=== PATIENT | female | born 1955 | race Caucasian/White ===

== ENCOUNTER 2022-04-28 06:04 | Inpatient (IN) ==
--- NOTE | 2022-04-09 15:03 | PAT Medication Instructions ---
Medication Instructions Date of Service April 09, 2022 Home Medications ascorbic acid (vitamin C) 500 mg tablet (Vitamin C) 500 mg PO QAM [id number]-ameebghxflxjq-omhcxsyz 250 mg-250 mg-65 mg tablet (Excedrin Migraine) 1 tab PO Q6H PRN atorvastatin 40 mg tablet 40 mg PO QAM calcium carbonate 600 mg calcium (1,500 mg) tablet (Calcium) 600 mg PO QAM cyanocobalamin (vitamin B-12) 100 mcg tablet (Vitamin B-12) 100 mcg PO QAM famotidine 20 mg tablet 20 mg PO QAM multivitamin 1 tab PO QAM psyllium husk 0.52 gram capsule (Daily Fiber) 0.52 g PO QAM ASK your surgeon for instructions qpcxerq-xewtreuikmmgw-rykpdxoc 250 mg-250 mg-65 mg tablet (Excedrin Migraine) 1 tab PO Q6H PRN DO NOT take the morning of surgery ascorbic acid (vitamin C) 500 mg tablet (Vitamin C) 500 mg PO QAM calcium carbonate 600 mg calcium (1,500 mg) tablet (Calcium) 600 mg PO QAM cyanocobalamin (vitamin B-12) 100 mcg tablet (Vitamin B-12) 100 mcg PO QAM multivitamin 1 tab PO QAM psyllium husk 0.52 gram capsule (Daily Fiber) 0.52 g PO QAM Take morning of surgery With a small sip of water, OTHERWISE NOTHING TO EAT OR DRINK AFTER MIDNIGHT: atorvastatin 40 mg tablet 40 mg PO QAM famotidine 20 mg tablet 20 mg PO QAM Other Notes If you have any questions please call us at [phone] or [phone] or [phone] or [phone]
--- NOTE | 2022-04-14 10:03 | Anesthesiology Consultation ---
Date of Service April 14, 2022 Assessment & Plan (1) Encounter for pre-operative examination: Chart Review Chart Review: Acceptable Risk for Surgery (pending surgeon ordered PCP clearance) and Patient seen in Pre Admission Testing - Awaiting PCP clearance (scheduled the week of April 21) Per PAT appt on 04/14/22, patient denies any recent travel or large group activities. Pt is vaccinated for Covid. Will leave to surgeon's discretion if preop Covid testing needed. Educated on importance of using Covid precautions one week prior to surgery History Surgery Operation Date: 04/28/22 07:45 Proposed Procedures p L3-L5 Decompression and Fusion, Spinal Cord Monitoring - Ruy Draper, Height/Weight Height: 5 ft 3 in Weight: 69 kg Allergies Allergy/AdvReac Type Severity Reaction Status Date / Time ampicillin Allergy Intermediate hives or Verified 04/09/22 11:23 flu like symptoms sulfamethoxazole Allergy Intermediate hives or Verified 04/09/22 11:23 [From Septra] flu like symptoms trimethoprim [From Septra] Allergy Intermediate hives or Verified 04/09/22 11:23 flu like symptoms acetaminophen Allergy Unknown Verified 04/14/22 09:55 [From Lorcet (hydrocodone)] hydrocodone Allergy Unknown Verified 04/14/22 09:55 Medications Home Medications Medication Instructions Recorded Confirmed Last Taken ascorbic acid (vitamin C) 500 mg 500 mg PO QAM 04/09/22 04/09/22 Unknown tablet (Vitamin C) ncosgou-xslftvichkfjt-fqjfuezf 250 1 tab PO Q6H PRN Migraine Headache 04/09/22 04/09/22 Unknown mg-250 mg-65 mg tablet (Excedrin Migraine) atorvastatin 40 mg tablet 40 mg PO QAM 04/09/22 04/09/22 Unknown calcium carbonate 600 mg calcium 600 mg PO QAM 04/09/22 04/09/22 Unknown (1,500 mg) tablet (Calcium) cyanocobalamin (vitamin B-12) 100 100 mcg PO QAM 04/09/22 04/09/22 Unknown mcg tablet (Vitamin B-12) famotidine 20 mg tablet 20 mg PO QAM 04/09/22 04/09/22 Unknown multivitamin 1 tab PO QAM 04/09/22 04/09/22 Unknown psyllium husk 0.52 gram capsule 0.52 g PO QAM 04/09/22 04/09/22 Unknown (Daily Fiber) Past Medical History Medical History Anxiety mild - no medications Degenerative disc disease Diverticular disease GERD (gastroesophageal reflux disease) Well controlled and stable History of dysphagia s/p esophageal dilation - symptoms improved Hx of motion sickness Hx of ovarian cyst S/p oophorectomy to one side and partial oophorectomy to other side Hyperlipidemia Leg pain bilateral Migraine hypnic headaches --> excedrin migraine works prn. Nausea and vomiting after administration of anesthetic agent severe Exercise / Class Metabolic Activity III < 4 Walking/Shop/Light housework (one flight of stairs - no chest pain or SOB- has fatigue ) Past Family History Family History Other No family history of adverse response to anesthesia Past Surgical History Surgical History H/O thumb surgery bone spur removed History of bunionectomy bilateral History of cataract surgery bilateral History of colonoscopy History of esophageal dilatation History of esophagogastroduodenoscopy (EGD) History of laparoscopy with removal of adhesions Hx of lumpectomy left (benign) Hx of rhinoplasty Hx of unilateral oophorectomy Hx of vaginal hysterectomy S/P epidural steroid injection S/P left knee arthroscopy Past Anesthesia History No Hx of Anesthesia Complications (with exception to PONV) and Other (FH of anesthesia unknown ) History of PONV History of PONV and Hx of Motion Sickness Social History Smoking Status: Never smoker Do You Dip or Chew Tobacco: No Hx Alcohol Use: No Hx Substance Use: No substance use type: does not use Review of Systems Hx of snoring- no hx of sleep study Patient denies chest pain, shortness of breath at rest, cough, wheezing, palpitations. No hx of seizures, stroke, MO. No hx of blood clots or blood transfusions Physical Exam Vital Signs VITALS BP 111/64 P 71 TEMP 98.2 SP02 98% RESP 16 Constitutional no acute distress ENMT Mouth: no TMJ clicking Thyromental Distance: < 3.5 Finger Breadths (3.0) Mallampati Class: I Caps to top front teeth Neck neck extension not limited Respiratory normal respiratory effort; no respiratory distress Auscultation: lungs clear to auscultation bilaterally; no wheezes Cardiovascular Rate/Rhythm: regular rate and regular rhythm Heart Sounds: no murmur Vessels: no carotid bruit Musculoskeletal Spine: no pain with cervical ROM Extremities: extremities normal to inspection Psychiatric Orientation: alert Lab Results Anesthesia Preop Results Results Anesthesia Widget: WBC 7.71 K/ul (4.8-10.8) 04/14/22 Hgb 14.6 g/dl (12.0-16.0) 04/14/22 Hct 43.0 % (37.0-47.0) 04/14/22 Plt 330 K/uL (130-400) 04/14/22 Na 139 mmol/L (136-145) 04/14/22 K 3.9 mmol/L (3.5-5.1) 04/14/22 Cl 106 mmol/L (98-107) 04/14/22 CO2 28 mmol/L (21-32) 04/14/22 BUN 11 mg/dl (6-23) 04/14/22 Creat 0.52 mg/dl (0.6-1.2) L 04/14/22 Glucose Level 85 mg/dl (70-99(Fasting)) 04/14/22 PT 10.9 Seconds (9.0-12.0) 04/14/22 PTT 24.8 Seconds (21.0-31.0) 04/14/22 INR 1.0 (0.9-1.1) 04/14/22 Urine Color Yellow 04/14/22 Urine Appearance Clear (Clear) 04/14/22 Urine pH 6.5 (4.5-7.5) 04/14/22 Urine Specific [place] 1.017 (1.000-1.030) 04/14/22 Urine Protein Negative (Negative) 04/14/22 Urine Glucose (UA) Negative (Negative) 04/14/22 Urine Ketones Negative (Negative) 04/14/22 Urine Blood Negative (Negative) 04/14/22 Urine Nitrite Negative (Negative) 04/14/22 Urine Bilirubin Negative (Negative) 04/14/22 Urine Urobilinogen Negative (Negative) 04/14/22 Urine Leukocyte Esterase 2+ (Negative) H 04/14/22 Urine WBC (Auto) 10-30 /hpf (0-5) H 04/14/22 Urine RBC (Auto) 10-30 /hpf (0-4) H 04/14/22 Urine Hyaline Casts (Auto) 1-5 /lpf (0-5) 04/14/22 Urine Epithelial Cells (Auto) >30 /lpf (0-5) H 04/14/22 Urine Bacteria (Auto) Negative (Negative) 04/14/22 Blood Type AB Negative 04/14/22 Antibody Screen NEGATIVE 04/14/22 Testing Electrocardiogram Date: 04/14/22 Findings: + NSR @ (70bpm ) Normal EKG per cardio Chest X-Ray Date: 04/14/22 Findings: + NAD COVID-19 Risk Screen Screening Information COVID-19 Screen Date: 04/14/22 Exposure 21 Days Family/Household +COVID Last 21 Days: No Exposure 10 Days Any COVID Exposure Last 10 Days: No Symptoms Last 10 Days Experienced COVID Sx Last 10 Days: No + COVID 0-90 Days COVID + in Last 0-90 Days: No Risk Plan COVID Risk Plan: No Risk Identified Patient Education COVID Preop Screening Education Complete: Yes
[~2022-04-28 06:04] MED LIST: CeleBREX 200 MG CAP PO SCH; GABAPENTIN 300 MG CAP PO SCH; LR 15ML/HR IV SCH
[2022-04-28] MEDS ORDERED: ATROPINE SULFATE 0.1 MG/ML 10ML SYR IV PRN (07:01)
[2022-04-28] MEDS ORDERED: SCOPOLAMINE 1 MG TDSY TD ONE (07:01)
[2022-04-28] MEDS ORDERED: ceFAZolin 330 MG/ML 1 GM VIAL ONE (07:01)
[2022-04-28] MEDS ORDERED: ePHEDrine sulfate 50 MG/ML AMP IV PRN (07:01)
[2022-04-28] MEDS ORDERED: fentaNYL citrate PF 100 MCG/2 ML VIAL IV PRN (07:01)
[2022-04-28] MEDS ORDERED: BUPIVACAINE/EPINEPHRINE 0.25% 1:200,000 30 ML VIAL ONE (07:01)
[2022-04-28] MEDS ORDERED: ONDANSETRON INJ 2 MG/ML 2 ML VIAL IV PRN ×2 (07:01→10:42)
[2022-04-28] MEDS ORDERED: HYDROmorphone INJ 2 MG/ML SYR/VIAL ONE (07:04)
[2022-04-28] MEDS ORDERED: PROPOFOL IV EMULSION 10 MG/ML 20 ML VIAL IV ONE (07:04)
--- NOTE | 2022-04-28 07:35 | History & Physical Bridge Note ---
Date of Service April 28, 2022 History & Physical Bridge Note I have examined the patient, reviewed the History & Physical and in the interval since the performance of the History & Physical I have noted the following changes of clinical significance: no changes noted
--- NOTE | 2022-04-28 07:36 | History & Physical Report ---
Date of Service April 28, 2022 Assessment & Plan (1) Neurogenic claudication due to lumbar spinal stenosis: Plan: L3-L5 decompression and fusion History of Present Illness Chief Complaint: Back and leg pain Primary Care Provider: NO PCP This is a 67-year-old female who presents with chronic persistent back and leg pain after failing course of nonoperative care she is here for surgical invention. Allergies Allergy/AdvReac Type Severity Reaction Status Date / Time ampicillin Allergy Intermediate hives or Verified 04/28/22 06:39 flu like symptoms sulfamethoxazole Allergy Intermediate hives or Verified 04/28/22 06:39 [From Septra] flu like symptoms trimethoprim [From Octra] Allergy Intermediate hives or Verified 04/28/22 06:39 flu like symptoms acetaminophen Allergy Unknown Verified 04/28/22 06:39 [From Lorcet (hydrocodone)] hydrocodone Allergy Unknown Verified 04/28/22 06:39 Home Medications Medication Instructions Recorded Confirmed Type ascorbic acid (vitamin C) 500 mg 500 mg PO QAM 04/09/22 04/28/22 History tablet (Vitamin C) uwzvtmf-hajfgrgzlrfqf-hbmchwtk 250 1 tab PO Q6H PRN Migraine Headache 04/09/22 04/28/22 History mg-250 mg-65 mg tablet (Excedrin Migraine) atorvastatin 40 mg tablet 40 mg PO QAM 04/09/22 04/28/22 History calcium carbonate 600 mg calcium 600 mg PO QAM 04/09/22 04/28/22 History (1,500 mg) tablet (Calcium) cyanocobalamin (vitamin B-12) 100 100 mcg PO QAM 04/09/22 04/28/22 History mcg tablet (Vitamin B-12) famotidine 20 mg tablet 20 mg PO QAM 04/09/22 04/28/22 History multivitamin 1 tab PO QAM 04/09/22 04/28/22 History psyllium husk 0.52 gram capsule 0.52 g PO QAM 04/09/22 04/28/22 History (Daily Fiber) Past Med/Surg History Medical History Anxiety mild - no medications Degenerative disc disease Diverticular disease GERD (gastroesophageal reflux disease) Well controlled and stable History of dysphagia s/p esophageal dilation - symptoms improved Hx of motion sickness Hx of ovarian cyst S/p oophorectomy to one side and partial oophorectomy to other side Hyperlipidemia Leg pain bilateral Migraine hypnic headaches --> excedrin migraine works prn. Nausea and vomiting after administration of anesthetic agent severe Surgical History H/O thumb surgery bone spur removed History of bunionectomy bilateral History of cataract surgery bilateral History of colonoscopy History of esophageal dilatation History of esophagogastroduodenoscopy (EGD) History of laparoscopy with removal of adhesions Hx of lumpectomy left (benign) Hx of rhinoplasty Hx of unilateral oophorectomy Hx of vaginal hysterectomy S/P epidural steroid injection S/P left knee arthroscopy Family History Other No family history of adverse response to anesthesia Social History Smoking Status: Never smoker Second Hand Exposure: No; Do You Dip or Chew Tobacco: No; Tobacco Cessation Education Requested by Patient: No Hx Alcohol Use: No Hx Substance Use: No Preferred Language: Burmese Communication Ability: Effective Belt Picker Required: No Beliefs That Will Affect Care: None Current Living Situation: Alone Other Information That Helps Us Care for You: No Feels Safe at Home: Yes Safety Concerns: Feels Safe At This Time Assistive Devices Comment: unable to walk long distance d/t leg pain Physical Exam Physical Exam: Patient is alert and oriented Heart regular rhythm Lungs clear Results & Data Results & Data Vital Signs (Past 12 Hours) Vital Signs Temp Pulse Resp BP Pulse Ox O2 Del Method 04/28/22 06:27 36.8 C 76 20 120/78 97 Room Air
[2022-04-28] MEDS ORDERED: CLINDAMYCIN/D5W 600 MG/50 ML BAG IV ONE (07:42)
[2022-04-28] MEDS ORDERED: CLINDAMYCIN 600 MG/D5W 50 ML BAG IV ONE (07:44)
[2022-04-28] MEDS ORDERED: ONDANSETRON INJ 2 MG/ML 2 ML VIAL ONE ×2 (08:16→08:59)
[2022-04-28] MEDS ORDERED: DEXAMETHASONE SOD INJ 4 MG/ML VIAL ONE (08:16)
[2022-04-28] MEDS ORDERED: ROCURONIUM BROMIDE 10 MG/ML 5 ML VIAL IV ONE ×3 (08:17→08:18)
[2022-04-28] MEDS ORDERED: PHENYLEPHRINE 100MCG/ML 5ML SYR ONE (08:21)
[2022-04-28] MEDS ORDERED: NEOSTIGMINE METHYLSULFATE 1 MG/ML 10ML VIAL ONE (08:59)
[2022-04-28] MEDS ORDERED: GLYCOPYRROLATE 0.2 MG/ML VIAL ONE (08:59)
--- NOTE | 2022-04-28 09:24 | Fluoroscopy Report ---
INTRAOPERATIVE RADIOGRAPHS CLINICAL HISTORY: L3-L5 spinal fusion. Fluoro time: 18 seconds. Exposure: 12.24 mGy FINDINGS: 2 spot fluoroscopic views of the lumbar spine are presented. There has been laminectomy and posterior fusion at L3-L5. Interpedicular screws are present at all levels. The orthopedic hardware appears intact. IMPRESSION: Intraoperative images from lumbar spinal fusion surgery as above. Electronically signed by: Mauro Ingram M.D. 04/28/2022 9:23 AM
--- NOTE | 2022-04-28 09:25 | Operative Report ---
Post Operative Report Pre & Post Diagnosis Operation Date: 04/28/22 07:45 Pre-Op Diagnosis: Spinal Stenosis, Lumbar Region with Neurogenic Claudication Lumbar spondylolisthesis Post-Op Diagnosis: Same I identified the patient and participated in the time-out.: Yes Procedure Operation Date: 04/28/22 07:45 Actual Procedures #1 lumbar decompression bilateral medial facetectomies and foraminotomies L2-L3, L3-L4 and L4-L5 #2 posterior spinal fusion L3-L4 L4-L5. #3 placement posterior instrumentation L3-L5. #4 placement locally harvested morselized autograft in the posterior gutters. #5 placement of I factor model V toss in the posterior gutters L3-L5. Surgeon Ruy Draper, Phlebotomy Coordinator Brooke Richards Estimated Blood Loss 100 Findings Consistent with Post-Op Diagnosis Specimens None Indications This is a 67-year-old female presents above-mentioned diagnosis after failing course of nonoperative care she is here for surgical invention. Description of Procedure Patient was met with identified informed consent obtained. Patient was then taken to the operative suite underwent a patient placed in a prone position on the [place] table top Sam frame. All bony prominences well-padded eyes inspected to ensure no external pressure placed upon the. This point the lumbar spine was prepped and draped no sterile fashion. Sharp dissection with assistance of Bovie cautery was performed down to and exposing the lamina and transverse processes of L3 L4-5 bilaterally. From caudal to cephalad fashion complete laminectomy of L4 L3 impression laminectomy of L2 was performed including bilateral medial facetectomies and foraminotomies addressing severe spinal stenosis. I did note marked evidence of dural ectasia and thinning along the right lateral recess at L4-5 and at the facet. I subsequently elected to prophylactically place DuraGen over this region followed by DuraSeal. Pedicle screws then placed in all 3 L4-L5 bilaterally with assistance of fluoroscopy and appropriately sized ruma locked in position. This included a cross-link. The transverse processes of L3-L4-L5 were then burred to subcortically bone. I factor amount of the test and locally harvested morselized autograft was placed in the posterior gutters. 15 round GARRY drain inserted. The incision was then closed with 1 Vicryl the fascia 2-0 Vicryl subcutaneously and 4 Monocryl for final skin closure. Steri-Strip sterile dressings placed. Patient awakened and taken to PACU in stable condition. Please note spinal cord monitoring utilized at the procedure no changes noted. Lastly Brooke Richards was present at the entire procedure involved the patient positioning complex portions of the surgery and final skin closure. I attest to the content of the Intraoperative Record and any orders documented therein. Any exceptions are noted below.
[2022-04-28] MEDS ORDERED: SUGAMMADEX SODIUM 200 MG/2 ML VIAL IV ONE (09:33)
--- NOTE | 2022-04-28 10:21 | Anesthesiology Progress Note ---
Date of Service April 28, 2022 Anesthesia Post Procedure Vital Signs Vital Signs: Temp Pulse Pulse Resp BP BP Pulse Ox 04/28/22 10:10 63 12 132/71 98 04/28/22 10:00 76 15 140/74 98 04/28/22 09:50 76 14 135/72 96 04/28/22 09:41 97.0 F L 92 H 15 156/76 H 97 04/28/22 06:27 98.2 F 76 20 120/78 97 O2 Del Method O2 Flow Rate 04/28/22 10:10 Nasal Cannula 3 04/28/22 10:00 Oxymask 10 04/28/22 09:50 Oxymask 10 04/28/22 09:41 Oxymask 10 04/28/22 06:27 Room Air Pain Intensity Lower Back: Pain Intensity: 5 Transfer of Care Handoff Completed per policy Notes Mental Status: alert / awake / arousable and participated in evaluation Patient Amnestic to Procedure: Yes Nausea / Vomiting: adequately controlled Pain: adequately controlled Airway Patency, RR, SpO2: stable & adequate BP & HR: stable & adequate Hydration State: stable & adequate Anesthetic Complications: no major complications apparent and Pt Satisfied with anesthetic care
[2022-04-28] MEDS ORDERED: PROMETHAZINE HCL 12.5 MG in SODIUM CHLORIDE 0.9% 50 ML IV PRN (10:42)
[2022-04-28] MEDS ORDERED: FAMOTIDINE 20 MG TAB PO PRN (10:42)
[2022-04-28] MEDS ORDERED: LORazepam 2 MG/1 ML VIAL IV PRN (10:42)
[2022-04-28] MEDS ORDERED: ALUMINUM/MAGNESIUM SUSP 30 ML UDC PO PRN (10:42)
[2022-04-28] MEDS ORDERED: NON-FORMULARY MEDICATION (Aspirin-Acetaminophen-Caffeine [Excedrin Migraine] 250-250-65 mg PO PRN (10:42)
[2022-04-28] MEDS ORDERED: ACETAMINOPHEN 1,000 MG/100 ML VIAL IV PRN (10:42)
[2022-04-28] MEDS ORDERED: ONDANSETRON 4 MG OD TAB PO PRN (10:42)
[2022-04-28] MEDS ORDERED: SOD PHOSPHATE/SOD BIPHOSPHATE ENEMA 132 ML BTL PR PRN (10:42)
[2022-04-28] MEDS ORDERED: ACETAMINOPHEN 500 MG TAB PO PRN (10:42)
[2022-04-28] MEDS ORDERED: traMADol HCL 50 MG TABLET PO PRN (10:42)
[2022-04-28] MEDS ORDERED: NALOXONE HCL 0.4 MG/1 ML VIAL/CARP IV PRN (10:42)
[2022-04-28] MEDS ORDERED: hydrOXYzine HCl 25 MG TAB PO PRN (10:42)
[2022-04-28] MEDS ORDERED: MAGNESIUM HYDROXIDE SUSP 30 ML UDC PO PRN (10:42)
[2022-04-28] MEDS ORDERED: HYDROmorphone INJ 0.5 MG/0.5 ML SYR IV PRN (10:42)
[2022-04-28] MEDS ORDERED: LORazepam 0.5 MG TAB PO PRN (10:42)
[2022-04-28] MEDS ORDERED: diphenhydrAMINE Capsule 25 MG CAP PO PRN (10:42)
[2022-04-28] MEDS ORDERED: bisacodyL 10 MG SUPP PR PRN (10:42)
[2022-04-28] MEDS ORDERED: DO NOT ADMINISTER FLU VACCINE PRN (10:42)
[2022-04-28] MEDS ORDERED: METOCLOPRAMIDE HCL INJ 5 MG/ML 2 ML VIAL IV PRN (10:42)
[2022-04-28] MEDS ORDERED: DO NOT ADMINISTER PNEUMOCOCCAL VACCINE PRN (10:42)
[2022-04-28] MEDS ORDERED: HYDROmorphone INJ 1 MG/ML SYRINGE IV PRN (10:42)
[2022-04-28] MEDS: ALLERGY Noted to ORDERED Medication SCH ×3 (10:54→10:56)
[2022-04-28] MEDS: LACTATED RINGER'S 1,000 ML IV SCH ×2 (10:56→20:00)
[2022-04-28] MEDS ORDERED: FLOSEAL HEMOSTATIC MATRIX 10ML TOP ONE (10:58)
--- NOTE | 2022-04-28 12:24 | Hospitalist Consultation ---
Date of Consultation April 28, 2022 Assessment & Plan (1) Status post spinal surgery: This is a 67-year-old female with PMH of hyperlipidemia, GERD, migraine headaches, B12 deficiency, hypertension and other medical problems listed below who is postop #0 s/p lumbar decompression and fusion L2-L5 by Dr. Draper. POD#0 s/p lumbar decompression and fusion L2-L5 by Dr. Draper Per ortho for pain control, wound care, anticoagulation and activities Monitor H&H (EBL 100ml, pre-op hgb 14.6) Continue incentive spirometry, PT/OT when appropriate (2) Dyslipidemia: Continue statin (3) Hypertension: Not on antihypertensives due to labile nature. Current BP 104/66, on IV fluids. Continue to monitor (4) GERD (gastroesophageal reflux disease): Continue H2 don (5) Migraine: Uses Excedrin as needed at home (6) Vitamin B12 deficiency: Continue supplementation DVT Ppx: SCDs per ortho service PCP: Dr. Carpenter of [facility] in [place], [place] Dispo: Per primary service Patient seen in collaboration with Dr. Antonio. Please see addendum. A total of 45 minutes were spent with greater than 50% of that time face to face with the patient, personally reviewing all current laboratories, imaging studies, past medication reconciliation, outpatient chart review, and discussion with specialists to collaborate care for the patient with attending and utilization of translation services. Please see attending documentation for corrections and/or additions. Supervising Physician Co-Signing Physician Notes I have seen and examined the patient and have discussed the case with the provider above. I agree with the assessment and plan as stated. 67 yo F s/p elective back surgery who is recovering well post operatively. No symptoms or concerns at this time. Meds reviewed. History reviewed. Unremarkable physical exam. Cont current therapy. DO Paco History of Present Illness Reason for Consultation: post op med mgmt Attending Physician: Ruy Draper DO History of Present Illness This is a 67-year-old female with PMH of hyperlipidemia, GERD, migraine headaches, B12 deficiency, hypertension and other medical problems listed below who is postop #0 s/p lumbar decompression and fusion L2-L5 by Dr. Draper. History per interview with patient and chart review of pre-op clearance. Feeling well postoperatively. Denies any pain at surgical site or in lower extremities at this time. Tolerated clear liquids for lunch without issue. Initially nauseated postoperatively but is resolved since. Denies any fever, chills, lightheadedness, headache, chest pain, shortness of breath, abdominal pain, dysuria. Last bowel movement yesterday. Was treated for UTI preoperatively with repeat urine culture that was negative for growth. Follows with primary care in [place]. Denies any history of diabetes. Not on blood thinners. Allergies Allergy/AdvReac Type Severity Reaction Status Date / Time ampicillin Allergy Intermediate hives or Verified 04/28/22 06:39 flu like symptoms sulfamethoxazole Allergy Intermediate hives or Verified 04/28/22 06:39 [From Septra] flu like symptoms trimethoprim [From Septra] Allergy Intermediate hives or Verified 04/28/22 06:39 flu like symptoms acetaminophen Allergy Unknown Verified 04/28/22 06:39 [From Lorcet (hydrocodone)] hydrocodone Allergy Unknown Verified 04/28/22 06:39 Home Medications Medication Instructions Recorded Confirmed Type ascorbic acid (vitamin C) 500 mg 500 mg PO QAM 04/09/22 04/28/22 History tablet (Vitamin C) [id number] 250 1 tab PO Q6H PRN Migraine Headache 04/09/22 04/28/22 History mg-250 mg-65 mg tablet (Excedrin Migraine) atorvastatin 40 mg tablet 40 mg PO QAM 04/09/22 04/28/22 History calcium carbonate 600 mg calcium 600 mg PO QAM 04/09/22 04/28/22 History (1,500 mg) tablet (Calcium) cyanocobalamin (vitamin B-12) 100 100 mcg PO QAM 04/09/22 04/28/22 History mcg tablet (Vitamin B-12) famotidine 20 mg tablet 20 mg PO QAM 04/09/22 04/28/22 History multivitamin 1 tab PO QAM 04/09/22 04/28/22 History psyllium husk 0.52 gram capsule 0.52 g PO QAM 04/09/22 04/28/22 History (Daily Fiber) Patient History Medical History (Updated 04/28/22 @ 12:49 by Vanda Cuellar PA-C) Anxiety Degenerative disc disease Diverticular disease Dyslipidemia GERD (gastroesophageal reflux disease) Well controlled and stable History of dysphagia s/p esophageal dilation - symptoms improved Hx of motion sickness Hx of ovarian cyst S/p oophorectomy to one side and partial oophorectomy to other side Hypertension Leg pain bilateral Migraine hypnic headaches --> excedrin migraine works prn. Nausea and vomiting after administration of anesthetic agent severe Surgical History (Updated 04/28/22 @ 12:49 by Vanda Cuellar PA-C) H/O thumb surgery bone spur removed History of bunionectomy bilateral History of cataract surgery bilateral History of colonoscopy History of esophageal dilatation History of esophagogastroduodenoscopy (EGD) History of laparoscopy with removal of adhesions Hx of lumpectomy left (benign) Hx of rhinoplasty Hx of unilateral oophorectomy Hx of vaginal hysterectomy S/P epidural steroid injection S/P left knee arthroscopy Family History Other Diabetes Hypertension No family history of adverse response to anesthesia Social History Smoking Status: Never smoker Second Hand Exposure: No; Do You Dip or Chew Tobacco: No; Tobacco Cessation Education Requested by Patient: No Hx Alcohol Use: No Hx Substance Use: No Preferred Language: Albanian Communication Ability: Effective Children'S Tutor Required: No Beliefs That Will Affect Care: None Current Living Situation: Alone Other Information That Helps Us Care for You: No Feels Safe at Home: Yes Safety Concerns: Feels Safe At This Time Assistive Devices Comment: unable to walk long distance d/t leg pain Review of Systems Review of Systems: At least ten systems reviewed and negative except as noted in the HPI. Physical Exam Physical Exam: General Appearance: WD/WN, vitals as above, NAD, lying in bed, drowsy but awakens to answer questions, conversing easily Head: normocephalic, atraumatic Eyes: normal inspection, PERRL, conjunctivae normal ENT: external ear and nose normal, oropharynx normal Neck: normal visual inspection, trachea midline Respiratory: normal respiratory effort, lungs clear to auscultation, no wheeze, rales, rhonchi. No accessory muscle use Cardiovascular: regular rate, rhythm, no murmur, normal peripheral pulses, no BLE edema Abdomen/GI: normal bowel sounds, soft, nontender, no hepatosplenomegaly Extremities/Musculoskeletal: no cyanosis or clubbing, extremities motor strength 5/5 Neurologic: PERRL, no face palsy, no dysarthria, CN's II-XI intact bilaterally and moves all extremities Psychiatric: A+Ox3, euthymic affect Skin: no rashes, normal color, warm/dry Results & Data Results & Data Vital Signs (Past 12 Hours) Vital Signs Temp Pulse Pulse Resp BP BP Pulse Ox 04/28/22 11:50 36.4 C L 66 16 104/66 98 04/28/22 11:17 64 16 108/70 100 04/28/22 10:45 04/28/22 10:45 36.5 C 60 14 106/63 99 04/28/22 10:20 59 L 12 125/66 97 04/28/22 10:10 63 12 132/71 98 04/28/22 10:00 76 15 140/74 98 04/28/22 09:50 76 14 135/72 96 04/28/22 09:41 36.1 C L 92 H 15 156/76 H 97 04/28/22 06:27 36.8 C 76 20 120/78 97 O2 Del Method O2 Flow Rate 04/28/22 11:50 Nasal Cannula 3 04/28/22 11:17 Nasal Cannula 3 04/28/22 10:45 Nasal Cannula 3 04/28/22 10:45 Nasal Cannula 3 04/28/22 10:20 Nasal Cannula 3 04/28/22 10:10 Nasal Cannula 3 04/28/22 10:00 Oxymask 10 04/28/22 09:50 Oxymask 10 04/28/22 09:41 Oxymask 10 04/28/22 06:27 Room Air Diagnostic Findings Lumbar Spine X-Ray 04/28/22 07:45 INTRAOPERATIVE RADIOGRAPHS CLINICAL HISTORY: L3-L5 spinal fusion. Fluoro time: 18 seconds. Exposure: 12.24 mGy FINDINGS: 2 spot fluoroscopic views of the lumbar spine are presented. There has been laminectomy and posterior fusion at L3-L5. Interpedicular screws are present at all levels. The orthopedic hardware appears intact. IMPRESSION: Intraoperative images from lumbar spinal fusion surgery as above. Electronically signed by: Mauro Ingram M.D. 04/28/2022 9:23 AM Medications Administered Current Inpatient Medications Acetaminophen (Acetaminophen 500 Mg Tab) 1,000 mg PO Q8H PRN PRN Reason: MILD Pain Scale 1,2,3 & Pre PT Stop: 05/28/22 10:41 Al Hydrox/Mg Hydrox/Simethicone (Aluminum/Magnesium Susp 30 Ml Udc) 30 ml PO Q6H PRN PRN Reason: Dyspepsia Stop: 05/28/22 10:41 Ascorbic Acid (Ascorbic Acid 500 Mg Tab) [facility] [place]: 05/29/22 08:59 Atorvastatin Calcium (Atorvastatin 40 Mg Tab) 40 mg [facility] [place]: 05/29/22 08:59 Bisacodyl (Bisacodyl 10 Mg Supp) 10 mg [place] DAILY PRN PRN Reason: Constipation Stop: 05/28/22 10:41 Calcium Carbonate (Calcium Carbonate 1250mg Tab) 1,250 mg PO [facility] Stop: 05/29/22 08:59 Celecoxib (Celebrex 200 Mg Cap) 200 mg PO PREOP [facility] Stop: 04/28/22 18:00 Last Admin: 04/28/22 06:44 Dose: 200 mg Cyanocobalamin (Cyanocobalamin (B-12) 100 Mcg Tablet) 100 mcg PO [facility] Stop: 05/29/22 08:59 Diphenhydramine HCl (Diphenhydramine Capsule 25 Mg Cap) 25 mg PO Q6H PRN PRN Reason: Allergic Rhinitis/Insomnia Stop: 05/28/22 10:41 Famotidine (Famotidine 20 Mg Tab) 20 mg PO [facility] Stop: 05/29/22 08:59 Famotidine (Famotidine 20 Mg Tab) 20 mg PO Q12H PRN PRN Reason: Dyspepsia Stop: 05/28/22 10:41 Gabapentin (Gabapentin 300 Mg Cap) 300 mg PO PREOP [facility] Stop: 04/28/22 18:00 Last Admin: 04/28/22 06:44 Dose: 300 mg Hydromorphone HCl (Hydromorphone Inj 0.5 Mg/0.5 Ml Syr) 0.5 mg IV Q3H PRN PRN Reason: MODERATE Pain (Scale 4,5,6) & Pre PT Stop: 05/12/22 10:41 Hydromorphone HCl (Hydromorphone Inj 1 Mg/Ml Syringe) 1 mg IV Q3H PRN PRN Reason: SEVERE Pain (Scale 7,8,9,10) Stop: 05/12/22 10:41 Last Admin: 04/28/22 11:54 Dose: 1 mg Hydroxyzine HCl (Hydroxyzine Hcl 25 Mg Tab) 25 mg PO Q8H PRN PRN Reason: Anxiety Stop: 05/28/22 10:41 Lactated Ringer's (Lr) 1,000 mls @ 15 mls/hr IV .Q24H [facility] Stop: 04/29/22 05:59 Last Infusion: 04/28/22 11:11 Dose: Infused Lactated Ringer's (Lr) 1,000 mls @ 100 mls/hr IV .Q10H [facility] Stop: 05/28/22 10:41 Last Admin: 04/28/22 10:56 Dose: 100 mls/hr Promethazine HCl 12.5 mg/ (Sodium Chloride) 50.5 mls @ 202 mls/hr IV Q6H PRN PRN Reason: Nausea &/or Vomiting Stop: 05/28/22 10:41 Acetaminophen (Ofirmev) 1,000 mg in 100 mls @ 400 mls/hr IV Q8H PRN PRN Reason: Pain Rating 1-3 & Pre PT Stop: 04/29/22 10:43 Clindamycin Phosphate (Cleocin/D5w) 600 mg in 50 mls @ 100 mls/hr IV Q8H [facility] Stop: 04/28/22 23:59 Last Infusion: 04/28/22 15:19 Dose: Infused Dexamethasone 6 mg/ Syringe 1.5 mls @ 1 mls/min IV DAILY [facility] Stop: 05/01/22 09:02 Influenza Virus Vaccine Quadrival (Do Not Administer Flu Vaccine) 1 each N/A PRN PRN PRN Reason: Notification Stop: 05/28/22 10:41 Lorazepam (Lorazepam 0.5 Mg Tab) 0.5 mg PO Q8H PRN PRN Reason: Sedation/Anxiety Stop: 05/28/22 10:41 Lorazepam (Lorazepam 2 Mg/1 Ml Vial) 0.5 mg IV Q8H PRN PRN Reason: Sedation/Anxiety Stop: 05/28/22 10:41 Magnesium Hydroxide (Magnesium Hydroxide Susp 30 Ml Udc) 30 ml PO Q24H PRN PRN Reason: Constipation Stop: 05/28/22 10:41 Metoclopramide HCl (Metoclopramide Hcl Inj 5 Mg/Ml 2 Ml Vial) 10 mg IV Q6H PRN PRN Reason: Nausea &/or Vomiting Stop: 05/28/22 10:41 Miscellaneous (Remove Transderm-Scop Patch) 1 each N/A ONE ONE Stop: 05/01/22 06:01 Miscellaneous (Check Scopolamine Patch Placement) 1 each N/A QS [facility] Stop: 05/01/22 05:59 Last Admin: 04/28/22 15:00 Dose: 1 each Multivitamins (Multivitamin Tab) 1 tab PO QAM [facility] Stop: 05/29/22 08:59 Naloxone HCl (Naloxone Hcl 0.4 Mg/1 Ml Vial/Carp) 0.1 mg IV Q5M PRN PRN Reason: Oversedation/Resp depression Stop: 05/28/22 10:41 Ondansetron HCl (Ondansetron Inj 2 Mg/Ml 2 Ml Vial) 4 mg IV Q6H PRN PRN Reason: Nausea &/or Vomiting Stop: 05/28/22 10:41 Ondansetron HCl (Ondansetron 4 Mg Od Tab) 4 mg PO Q6H PRN PRN Reason: Nausea Stop: 05/28/22 10:41 Oxycodone HCl (Oxycodone Hcl Ir 5 Mg Tab (Immediate Release)) 5 - 10 mg PO Q4H PRN PRN Reason: Pain & Pre PT Stop: 05/12/22 10:41 Pneumococcal Polyvalent Vaccine (Do Not Administer Pneumococcal Vaccine) 1 each N/A PRN PRN PRN Reason: Notification Stop: 05/28/22 10:41 Polyethylene Glycol (Polyethylene (Miralax) 17 Gm Pack) 17 gm PO Q6 [facility] Stop: 05/29/22 05:59 Senna/Docusate Sodium (Docusate Sodium/Senna 50/8.6mg Tab) 2 tab PO HS [facility] Stop: 05/28/22 20:59 Sodium Biphosphate/Sodium Phosphate (Sod Phosphate/Sod Biphosphate Enema 132 Ml Btl) 132 ml [place] ONE PRN PRN Reason: Constipation Stop: 05/28/22 10:41 Tramadol HCl (Tramadol Hcl 50 Mg Tablet) 50 - 100 mg PO Q4H PRN PRN Reason: Moderate-Severe pain & Pre PT Stop: 05/28/22 10:41
[2022-04-28] MEDS: CLINDAMYCIN/D5W 600 MG/50 ML BAG IV SCH ×2 (14:50→21:33)
[2022-04-28] MEDS: CHECK SCOPOLAMINE PATCH PLACEMENT SCH (15:00)
[2022-04-28] MEDS ORDERED: ALLERGY Noted to ORDERED Medication SCH (16:00)
[2022-04-28] MEDS: oxyCODONE HCL IR 5 MG TAB (IMMEDIATE RELEASE) PO PRN ×2 (17:18→21:27)
[2022-04-28] MEDS: DOCUSATE SODIUM/SENNA 50/8.6MG TAB PO SCH (20:00)
[2022-04-29] MEDS: oxyCODONE HCL IR 5 MG TAB (IMMEDIATE RELEASE) PO PRN ×5 (02:28→21:51)
[2022-04-29] MEDS: CHECK SCOPOLAMINE PATCH PLACEMENT SCH ×3 (02:29→15:20)
[2022-04-29] MEDS: POLYETHYLENE (MIRALAX) 17 GM PACK PO SCH ×3 (06:06→17:46)
[2022-04-29] MEDS: ASCORBIC ACID 500 MG TAB PO SCH (08:02)
[2022-04-29] MEDS: FAMOTIDINE 20 MG TAB PO SCH (08:02)
[2022-04-29] MEDS: ATORVASTATIN 40 MG TAB PO SCH (08:03)
[2022-04-29] MEDS: MULTIVITAMIN TAB PO SCH (08:03)
[2022-04-29] MEDS: CYANOCOBALAMIN (B-12) 100 MCG TABLET PO SCH (08:03)
[2022-04-29] MEDS: CALCIUM CARBONATE 1250MG TAB PO SCH (08:03)
[2022-04-29] MEDS: dexAMETHasone 6 MG in SYRINGE 0 ML IV SCH (08:03)
[2022-04-29 08:43] LABS: Basophils # (auto) 0.01 K/uL (0-0.2); Basophils % (auto) 0.1 %; Hematocrit (blood only) 36.7 % (37.0-47.0); Hemoglobin 12.2 g/dl (12.0-16.0); Immature Granulocytes # (auto) 0.06 K/uL (0.01-0.20); Immature Granulocytes % (auto) 0.4 %; Lymphocytes # (auto) 1.64 K/uL (1.2-3.4); Lymphocytes % (auto) 10.3 %; Mean Corpuscular Hgb Conc 33.2 g/dL (32.0-36.0); Mean Corpuscular Volume 93.1 fL (80.0-100.0); Mean Platelet Volume 10.2 fL (9.4-12.4); Monocytes # (auto) 1.26 K/uL (0.11-0.59); Monocytes % (auto) 7.9 %; Neutrophils # (auto) 12.99 K/uL (1.40-6.50); Neutrophils % (auto) 81.3 %; Platelet Count 347 K/uL (130-400); RDW Coefficient of Variation 12.2 % (11.5-14.5); RDW Standard Deviation 41.7 fL (36.4-46.3); Red Blood Count 3.94 M/uL (4.20-5.40); White Blood Count 15.96 K/ul (4.8-10.8)
[2022-04-29 09:12] LABS: BUN Creatinine Ratio 18.9 (10-20); Creatinine Clr Calc Pharmacy 92.5 ml/min; Est GFR (African American) 112.3 ml/min; Est GFR (Non-African American) 96.9 ml/min; Potassium 4.2 mmol/L (3.5-5.1)
--- NOTE | 2022-04-29 09:44 | Orthopedic Progress Note ---
Date of Service April 29, 2022 Assessment & Plan (1) Neurogenic claudication due to lumbar spinal stenosis: Plan: This time we will initiate physical therapy assess her progress hopefully discharge home next few days. Admission and Anticipated Discharge Date Admission Date: April 28, 2022 Subjective Back pain controlled denies any leg pain Physical Exam Physical Exam: Patient is sitting up at bedside. Is constricted testing. Results & Data Vital Signs (Past 12 Hours) Vital Signs Temp Pulse Resp BP BP Pulse Ox O2 Del Method 04/29/22 08:00 109/68 04/29/22 07:14 36.6 C 62 16 99/64 L 94 Room Air 04/29/22 03:03 36.6 C 66 18 104/64 97 Room Air 04/28/22 23:04 36.5 C 76 16 104/63 93 Room Air
--- NOTE | 2022-04-29 10:09 | Hospitalist Progress Note ---
Date of Service April 29, 2022 Assessment & Plan (1) Status post spinal surgery: Plan: This is a 67-year-old female with PMH of hyperlipidemia, GERD, migraine headaches, B12 deficiency, hypertension and other medical problems listed below who is postop #1 s/p lumbar decompression and fusion L2-L5 by Dr. Draper. POD#1 s/p lumbar decompression and fusion L2-L5 by Dr. Draper Per ortho for pain control, wound care, anticoagulation and activities Monitor H&H (EBL 100ml, pre-op hgb 14.6), hemoglobin 12.2 today - acute blood loss anemia/post-op vs. dilutional, expected, no need for blood transfusion at this time Continue incentive spirometry, PT/OT when appropriate Leukocytosis WBC 15.96k Likely reactive in setting of steroid use No signs or symptoms of infection Monitor Elevated fasting glucose bsg 109 this a.m. obtain a1c in a.m. labs likely in setting of steroid use (2) Dyslipidemia: Plan: Continue statin (3) Hypertension: Plan: Not on antihypertensives due to labile nature. Current BP 109/68, continue to monitor (4) GERD (gastroesophageal reflux disease): Plan: Continue H2 don (5) Migraine: Plan: Uses Excedrin as needed at home (6) Vitamin B12 deficiency: Plan: Continue supplementation DVT Ppx: SCDs per ortho service PCP: Dr. Carpenter of [facility] in [place], [place] Dispo: Per primary service Patient seen in collaboration with Dr. Astorga. Please see addendum. A total of 25 minutes were spent with greater than 50% of that time face to face with the patient, personally reviewing all current laboratories, imaging studies, past medication reconciliation, outpatient chart review, and discussion with specialists to collaborate care for the patient with attending. Please see attending documentation for corrections and/or additions. Admission and Anticipated Discharge Date Admission Date: April 28, 2022 Supervising Physician Co-Signing Physician Notes Pt seen and examined by me, care coordinated w/ Saul Stein PA-C, pls refer to her note above for further detail. Pt is a 67 yo female with hyperlipidemia, GERD, migraine headaches, B12 deficiency, hypertension who is postop #1 s/p lumbar decompression and fusion L2-L5 by Dr. Draper. She is currently doing well. Sitting up in a chair in NAD. says she has not worked with PT yet. Still has Cortes catheter placed- draining yellow urine. pain seems to be fairly well controlled. Pt appears comfortable. She is awake, alert, oriented, answering appropriately. Lungs are CTAB. Heart sounds regular. Abdomen soft, nondistended, nontender. she is moving extremities. Hgb down, as above, will cont. to monitor H&H, and hemodynamic status. MD Rizwan Subjective Patient was seen and examined in room 305. Follow-up lumbar surgery by Dr. Draper. She complains of feeling very, "stiff." Pain is currently 4 out of 10 and described as more incisional pain. Denies any radicular symptoms. Denies chest pain, shortness of breath, nausea, vomiting, fever, chills, abdominal pain. She has not yet passed flatus. Continues to have Cortes catheter intact. Review of Systems Review of Systems: All systems reviewed & are unremarkable except as noted in HPI & below Physical Exam Physical Exam: Gen: WD/WN, lying in bed, female, NAD, A&O x3 HEENT: Normocephalic, atraumatic, conjunctivae moist, sclerae anicteric, mucous membranes moist. Lung: Clear to Auscultation bilaterally, no wheezes/rales/rhonchi Heart: Regular rate, regular rhythm, no murmurs, rubs, or gallops Abdomen: Soft, NT, ND +BS x 4 Extremities: No edema, lumbar dressing intact, CDI, GARRY drain with serosanguineous drainage Skin: Warm, no rash, negative turgor. : Corets catheter draining yellow urine Results & Data Results & Data Vital Signs (Past 12 Hours) Vital Signs Temp Pulse Resp BP BP Pulse Ox O2 Del Method 04/29/22 08:00 109/68 04/29/22 07:14 36.6 C 62 16 99/64 L 94 Room Air 04/29/22 03:03 36.6 C 66 18 104/64 97 Room Air 04/28/22 23:04 36.5 C 76 16 104/63 93 Room Air Laboratory Results Short CBC 04/29/22 Range/Units 07:11 WBC 15.96 H (4.8-10.8) K/ul Hgb 12.2 (12.0-16.0) g/dl Hct 36.7 L (37.0-47.0) % Plt Count 347 (130-400) K/uL BMP 04/29/22 07:11 Sodium 138 Potassium 4.2 Chloride 104 Carbon Dioxide 27 BUN 10 Creatinine 0.53 L Glucose 109 H Calcium 9.0 Medications Administered Current Inpatient Medications Acetaminophen (Acetaminophen 500 Mg Tab) 1,000 mg PO Q8H PRN PRN Reason: MILD Pain Scale 1,2,3 & Pre PT Stop: 05/28/22 10:41 Al Hydrox/Mg Hydrox/Simethicone (Aluminum/Magnesium Susp 30 Ml Udc) 30 ml PO Q6H PRN PRN Reason: Dyspepsia Stop: 05/28/22 10:41 Ascorbic Acid (Ascorbic Acid 500 Mg Tab) 500 mg PO [facility] Stop: 05/29/22 08:59 Last Admin: 04/29/22 08:02 Dose: 500 mg Atorvastatin Calcium (Atorvastatin 40 Mg Tab) 40 mg PO [facility] Stop: 05/29/22 08:59 Last Admin: 04/29/22 08:03 Dose: 40 mg Bisacodyl (Bisacodyl 10 Mg Supp) 10 mg [place] DAILY PRN PRN Reason: Constipation Stop: 05/28/22 10:41 Calcium Carbonate (Calcium Carbonate 1250mg Tab) 1,250 mg PO [facility] Stop: 05/29/22 08:59 Last Admin: 04/29/22 08:03 Dose: 1,250 mg Cyanocobalamin (Cyanocobalamin (B-12) 100 Mcg Tablet) 100 mcg PO [facility] Stop: 05/29/22 08:59 Last Admin: 04/29/22 08:03 Dose: 100 mcg Diphenhydramine HCl (Diphenhydramine Capsule 25 Mg Cap) 25 mg PO Q6H PRN PRN Reason: Allergic Rhinitis/Insomnia Stop: 05/28/22 10:41 Famotidine (Famotidine 20 Mg Tab) 20 mg PO [facility] Stop: 05/29/22 08:59 Last Admin: 04/29/22 08:02 Dose: 20 mg Famotidine (Famotidine 20 Mg Tab) 20 mg PO Q12H PRN PRN Reason: Dyspepsia Stop: 05/28/22 10:41 Hydromorphone HCl (Hydromorphone Inj 0.5 Mg/0.5 Ml Syr) 0.5 mg IV Q3H PRN PRN Reason: MODERATE Pain (Scale 4,5,6) & Pre PT Stop: 05/12/22 10:41 Hydromorphone HCl (Hydromorphone Inj 1 Mg/Ml Syringe) 1 mg IV Q3H PRN PRN Reason: SEVERE Pain (Scale 7,8,9,10) Stop: 05/12/22 10:41 Last Admin: 04/28/22 11:54 Dose: 1 mg Hydroxyzine HCl (Hydroxyzine Hcl 25 Mg Tab) 25 mg PO Q8H PRN PRN Reason: Anxiety Stop: 05/28/22 10:41 Promethazine HCl 12.5 mg/ (Sodium Chloride) 50.5 mls @ 202 mls/hr IV Q6H PRN PRN Reason: Nausea &/or Vomiting Stop: 05/28/22 10:41 Acetaminophen (Ofirmev) 1,000 mg in 100 mls @ 400 mls/hr IV Q8H PRN PRN Reason: Pain Rating 1-3 & Pre PT Stop: 04/29/22 10:43 Dexamethasone 6 mg/ Syringe 1.5 mls @ 1 mls/min IV DAILY [facility] Stop: 05/01/22 09:02 Last Admin: 04/29/22 08:03 Dose: 1 mls/min Influenza Virus Vaccine Quadrival (Do Not Administer Flu Vaccine) 1 each N/A PRN PRN PRN Reason: Notification Stop: 05/28/22 10:41 Lorazepam (Lorazepam 0.5 Mg Tab) 0.5 mg PO Q8H PRN PRN Reason: Sedation/Anxiety Stop: 05/28/22 10:41 Lorazepam (Lorazepam 2 Mg/1 Ml Vial) 0.5 mg IV Q8H PRN PRN Reason: Sedation/Anxiety Stop: 05/28/22 10:41 Magnesium Hydroxide (Magnesium Hydroxide Susp 30 Ml Udc) 30 ml PO Q24H PRN PRN Reason: Constipation Stop: 05/28/22 10:41 Metoclopramide HCl (Metoclopramide Hcl Inj 5 Mg/Ml 2 Ml Vial) 10 mg IV Q6H PRN PRN Reason: Nausea &/or Vomiting Stop: 05/28/22 10:41 Miscellaneous (Remove Transderm-Scop Patch) 1 each N/A ONE ONE Stop: 05/01/22 06:01 Miscellaneous (Check Scopolamine Patch Placement) 1 each N/A QS COUNT INCLUDES [facility] Stop: 05/01/22 05:59 Last Admin: 04/29/22 07:59 Dose: 1 each Multivitamins (Multivitamin Tab) 1 tab PO QAM [facility] Stop: 05/29/22 08:59 Last Admin: 04/29/22 08:03 Dose: 1 tab Naloxone HCl (Naloxone Hcl 0.4 Mg/1 Ml Vial/Carp) 0.1 mg IV Q5M PRN PRN Reason: Oversedation/Resp depression Stop: 05/28/22 10:41 Ondansetron HCl (Ondansetron Inj 2 Mg/Ml 2 Ml Vial) 4 mg IV Q6H PRN PRN Reason: Nausea &/or Vomiting Stop: 05/28/22 10:41 Ondansetron HCl (Ondansetron 4 Mg Od Tab) 4 mg PO Q6H PRN PRN Reason: Nausea Stop: 05/28/22 10:41 Oxycodone HCl (Oxycodone Hcl Ir 5 Mg Tab (Immediate Release)) 5 - 10 mg PO Q4H PRN PRN Reason: Pain & Pre PT Stop: 05/12/22 10:41 Last Admin: 04/29/22 08:01 Dose: 10 mg Pneumococcal Polyvalent Vaccine (Do Not Administer Pneumococcal Vaccine) 1 each N/A PRN PRN PRN Reason: Notification Stop: 05/28/22 10:41 Polyethylene Glycol (Polyethylene (Miralax) 17 Gm Pack) 17 gm PO Q6 [facility] Stop: 05/29/22 05:59 Last Admin: 04/29/22 06:06 Dose: 17 gm Senna/Docusate Sodium (Docusate Sodium/Senna 50/8.6mg Tab) 2 tab PO HS [facility] Stop: 05/28/22 20:59 Last Admin: 04/28/22 20:00 Dose: 2 tab Sodium Biphosphate/Sodium Phosphate (Sod Phosphate/Sod Biphosphate Enema 132 Ml Btl) 132 ml [place] ONE PRN PRN Reason: Constipation Stop: 05/28/22 10:41 Tramadol HCl (Tramadol Hcl 50 Mg Tablet) 50 - 100 mg PO Q4H PRN PRN Reason: Moderate-Severe pain & Pre PT Stop: 05/28/22 10:41
[2022-04-29] MEDS: DOCUSATE SODIUM/SENNA 50/8.6MG TAB PO SCH (20:25)
[2022-04-30] MEDS: CHECK SCOPOLAMINE PATCH PLACEMENT SCH ×4 (00:20→23:42)
[2022-04-30] MEDS: oxyCODONE HCL IR 5 MG TAB (IMMEDIATE RELEASE) PO PRN ×5 (04:51→23:42)
[2022-04-30] MEDS: POLYETHYLENE (MIRALAX) 17 GM PACK PO SCH ×5 (05:46→23:42)
[2022-04-30 06:49] LABS: Basophils # (auto) 0.02 K/uL (0-0.2); Basophils % (auto) 0.1 %; Hemoglobin 12.3 g/dl (12.0-16.0); Immature Granulocytes # (auto) 0.12 K/uL (0.01-0.20); Immature Granulocytes % (auto) 0.8 %; Lymphocytes # (auto) 2.77 K/uL (1.2-3.4); Lymphocytes % (auto) 17.8 %; Mean Corpuscular Hemoglobin 31.4 pg (25.0-34.0); Mean Corpuscular Hgb Conc 34.2 g/dL (32.0-36.0); Mean Corpuscular Volume 91.8 fL (80.0-100.0); Mean Platelet Volume 10.3 fL (9.4-12.4); Monocytes % (auto) 8.3 %; Neutrophils # (auto) 11.38 K/uL (1.40-6.50); Platelet Count 336 K/uL (130-400); RDW Coefficient of Variation 12.2 % (11.5-14.5); RDW Standard Deviation 40.9 fL (36.4-46.3); Red Blood Count 3.92 M/uL (4.20-5.40); White Blood Count 15.59 K/ul (4.8-10.8)
[2022-04-30 07:03] LABS: BUN Creatinine Ratio 27.8 (10-20); Calcium 9.2 mg/dl (8.5-10.1); Creatinine Clr Calc Pharmacy 90.8 ml/min; Est GFR (African American) 111.6 ml/min; Est GFR (Non-African American) 96.3 ml/min; Potassium 3.6 mmol/L (3.5-5.1)
[2022-04-30] MEDS: MULTIVITAMIN TAB PO SCH (07:59)
[2022-04-30] MEDS: CYANOCOBALAMIN (B-12) 100 MCG TABLET PO SCH (07:59)
[2022-04-30] MEDS: CALCIUM CARBONATE 1250MG TAB PO SCH (07:59)
[2022-04-30] MEDS: ATORVASTATIN 40 MG TAB PO SCH (07:59)
[2022-04-30] MEDS: dexAMETHasone 6 MG in SYRINGE 0 ML IV SCH (07:59)
[2022-04-30] MEDS: ASCORBIC ACID 500 MG TAB PO SCH (08:00)
[2022-04-30] MEDS: FAMOTIDINE 20 MG TAB PO SCH (08:00)
--- NOTE | 2022-04-30 08:28 | Orthopedic Progress Note ---
Date of Service April 30, 2022 Assessment & Plan (1) Status post spinal surgery: Plan: Gladys postoperative day 2 status post posterior spinal fusion L3-5. She will start physical therapy today. Continue working on aggressive bowel regimen. Continue with pain control. DVT prophylaxis is in the form of teds and SCDs. Anticipate discharge home tomorrow. Admission and Anticipated Discharge Date Admission Date: April 28, 2022 Subjective Gladys is postoperative day 2 status post L3-5 decompression and instrumented fusion. H&H this morning are 12.3 and 36.0. She denies any headaches. She is passing flatus but no bowel movement. She did not have formal physical therapy today. She was walking around the room yesterday though. Denies any leg pain when ambulatory. She states GARRY drain was pulled this morning. Review of Systems Review of Systems: All systems reviewed & are unremarkable except as noted in HPI & below Physical Exam Physical Exam: She is laying in bed in no acute distress Alert and oriented x3 Lumbar dressing is clean dry and intact Calf soft nontender bilateral Strength intact bilateral lower extremities ALLISON hose intact bilateral lower extremities Results & Data Vital Signs (Past 12 Hours) Vital Signs Temp Pulse Resp BP BP Pulse Ox O2 Del Method 04/30/22 07:31 36.7 C 59 L 16 108/66 99 Room Air 04/29/22 20:41 36.7 C 63 16 102/63 95 Room Air
--- NOTE | 2022-04-30 10:30 | Hospitalist Progress Note ---
Date of Service April 30, 2022 Assessment & Plan (1) Status post spinal surgery: Plan: This is a 67-year-old female with PMH of hyperlipidemia, GERD, migraine headaches, B12 deficiency, hypertension and other medical problems listed below who is postop #2 s/p lumbar decompression and fusion L2-L5 by Dr. Draper. POD#2 s/p lumbar decompression and fusion L2-L5 by Dr. Draper Per ortho for pain control, wound care, anticoagulation and activities Monitor H&H (EBL 100ml, pre-op hgb 14.6), hemoglobin 12.3 today Continue incentive spirometry, PT/OT when appropriate Leukocytosis Likely reactive in setting of steroid use No signs or symptoms of infection Monitor Elevated fasting glucose bsg 103 this a.m a1c 6.3 discussed with pt regarding pre diabetes, recommend repeat a1c in 6 months diet and lifestyle mod advised (2) Dyslipidemia: Plan: Continue statin (3) Hypertension: Plan: Not on antihypertensives due to labile nature. Current BP 108/66, continue to monitor (4) GERD (gastroesophageal reflux disease): Plan: Continue H2 don (5) Migraine: Plan: Uses Excedrin as needed at home (6) Vitamin B12 deficiency: Plan: Continue supplementation DVT Ppx: SCDs per ortho service PCP: Dr. Carpenter of [facility] in [place], [place] Dispo: Per primary service Patient seen in collaboration with Dr. De Los Santos. Please see addendum. A total of 30 minutes were spent with greater than 50% of that time face to face with the patient, personally reviewing all current laboratories, imaging studies, past medication reconciliation, outpatient chart review, and discussion with specialists to collaborate care for the patient with attending. Please see attending documentation for corrections and/or additions. Admission and Anticipated Discharge Date Admission Date: April 28, 2022 Supervising Physician Co-Signing Physician Notes Patient is seen and examined at bedside. Back pain at surgical site is controlled. Leg pain prior to surgery is currently resolved. Denies any chest pain, dyspnea, nausea, abdominal pain. On exam patient is moderately built and nourished, no apparent distress, normocephalic atraumatic, EOMI, normal breath sounds, clear to auscultation, S1-S2, no murmur, no pedal edema, abdomen soft, nontender, normal bowel sounds,Back; surgical site in dressing, alert, awake, oriented, grossly no focal deficits. Patient is being managed for lumbar spinal stenosis with neurogenic claudication S/P lumbar surgery by Dr. Draper. Pain control, wound care, DVT prophylaxis as per primary team. Monitor for leukocytosis. Prediabetes with HbA1c 6.3, needs counseling. Continue medications for hypertension, hyperlipidemia, GERD. I personally reviewed the record. Patient is interviewed and examined at bedside. Patient's care is coordinated with Ria Stein PA-C. Please refer to the documentation above for details of patient's presentation and for discussion of other issues. Subjective Patient was seen and examined in room 305. Follow-up lumbar surgery by Dr. Draper. She feels well today and offers no acute concerns. Her appetite is doing well. She denies passing flatus. She denies fever, chills, sweats, lightheadedness, dizziness, chest pain, shortness breath, nausea, vomiting or abdominal pain. She denies any difficulty with urinating after catheter was removed. Review of Systems Review of Systems: All systems reviewed & are unremarkable except as noted in HPI & below Physical Exam Physical Exam: Gen: WD/WN, lying in bed, female, NAD, A&O x3 HEENT: Normocephalic, atraumatic, conjunctivae moist, sclerae anicteric, mucous membranes moist. Lung: Clear to Auscultation bilaterally, no wheezes/rales/rhonchi Heart: Regular rate, regular rhythm, no murmurs, rubs, or gallops Abdomen: Soft, NT, ND +BS x 4 Extremities: No edema, lumbar dressing intact, CDI, GARRY drain with serosanguineous drainage Skin: Warm, no rash, negative turgor. Results & Data Results & Data Vital Signs (Past 12 Hours) Vital Signs Temp Pulse Resp BP Pulse Ox O2 Del Method 04/30/22 07:31 36.7 C 59 L 16 108/66 99 Room Air Laboratory Results Short CBC 04/30/22 Range/Units 05:42 WBC 15.59 H (4.8-10.8) K/ul Hgb 12.3 (12.0-16.0) g/dl Hct 36.0 L (37.0-47.0) % Plt Count 336 (130-400) K/uL [facility] 04/30/22 05:42 Sodium 138 Potassium 3.6 Chloride 104 Carbon Dioxide 25 BUN 15 Creatinine 0.54 L Glucose 103 H Calcium 9.2 Medications Administered Current Inpatient Medications Acetaminophen (Acetaminophen 500 Mg Tab) 1,000 mg PO Q8H PRN PRN Reason: MILD Pain Scale 1,2,3 & Pre PT Stop: 05/28/22 10:41 Al Hydrox/Mg Hydrox/Simethicone (Aluminum/Magnesium Susp 30 Ml Udc) 30 ml PO Q6H PRN PRN Reason: Dyspepsia Stop: 05/28/22 10:41 Ascorbic Acid (Ascorbic Acid 500 Mg Tab) 500 mg PO [facility] Stop: 05/29/22 08:59 Last Admin: 04/30/22 08:00 Dose: 500 mg Atorvastatin Calcium (Atorvastatin 40 Mg Tab) 40 mg PO [facility] Stop: 05/29/22 08:59 Last Admin: 04/30/22 07:59 Dose: 40 mg Bisacodyl (Bisacodyl 10 Mg Supp) 10 mg TX DAILY PRN PRN Reason: Constipation Stop: 05/28/22 10:41 Calcium Carbonate (Calcium Carbonate 1250mg Tab) 1,250 mg PO [facility] Stop: 05/29/22 08:59 Last Admin: 04/30/22 07:59 Dose: 1,250 mg Cyanocobalamin (Cyanocobalamin (B-12) 100 Mcg Tablet) 100 mcg PO [facility] Stop: 05/29/22 08:59 Last Admin: 04/30/22 07:59 Dose: 100 mcg Diphenhydramine HCl (Diphenhydramine Capsule 25 Mg Cap) 25 mg PO Q6H PRN PRN Reason: Allergic Rhinitis/Insomnia Stop: 05/28/22 10:41 Famotidine (Famotidine 20 Mg Tab) 20 mg PO [facility] Stop: 05/29/22 08:59 Last Admin: 04/30/22 08:00 Dose: 20 mg Famotidine (Famotidine 20 Mg Tab) 20 mg PO Q12H PRN PRN Reason: Dyspepsia Stop: 05/28/22 10:41 Hydromorphone HCl (Hydromorphone Inj 0.5 Mg/0.5 Ml Syr) 0.5 mg IV Q3H PRN PRN Reason: MODERATE Pain (Scale 4,5,6) & Pre PT Stop: 05/12/22 10:41 Hydromorphone HCl (Hydromorphone Inj 1 Mg/Ml Syringe) 1 mg IV Q3H PRN PRN Reason: SEVERE Pain (Scale 7,8,9,10) Stop: 05/12/22 10:41 Last Admin: 04/28/22 11:54 Dose: 1 mg Hydroxyzine HCl (Hydroxyzine Hcl 25 Mg Tab) 25 mg PO Q8H PRN PRN Reason: Anxiety Stop: 05/28/22 10:41 Promethazine HCl 12.5 mg/ (Sodium Chloride) 50.5 mls @ 202 mls/hr IV Q6H PRN PRN Reason: Nausea &/or Vomiting Stop: 05/28/22 10:41 Dexamethasone 6 mg/ Syringe 1.5 mls @ 1 mls/min IV DAILY [facility] Stop: 05/01/22 09:02 Last Admin: 04/30/22 07:59 Dose: 1 mls/min Influenza Virus Vaccine Quadrival (Do Not Administer Flu Vaccine) 1 each N/A PRN PRN PRN Reason: Notification Stop: 05/28/22 10:41 Lorazepam (Lorazepam 0.5 Mg Tab) 0.5 mg PO Q8H PRN PRN Reason: Sedation/Anxiety Stop: 05/28/22 10:41 Lorazepam (Lorazepam 2 Mg/1 Ml Vial) 0.5 mg IV Q8H PRN PRN Reason: Sedation/Anxiety Stop: 05/28/22 10:41 Magnesium Hydroxide (Magnesium Hydroxide Susp 30 Ml Udc) 30 ml PO Q24H PRN PRN Reason: Constipation Stop: 05/28/22 10:41 Metoclopramide HCl (Metoclopramide Hcl Inj 5 Mg/Ml 2 Ml Vial) 10 mg IV Q6H PRN PRN Reason: Nausea &/or Vomiting Stop: 05/28/22 10:41 Miscellaneous (Remove Transderm-Scop Patch) 1 each N/A ONE ONE Stop: 05/01/22 06:01 Miscellaneous (Check Scopolamine Patch Placement) 1 each N/A QS [facility] Stop: 05/01/22 05:59 Last Admin: 04/30/22 07:59 Dose: 1 each Multivitamins (Multivitamin Tab) 1 tab PO QAM [facility] Stop: 05/29/22 08:59 Last Admin: 04/30/22 07:59 Dose: 1 tab Naloxone HCl (Naloxone Hcl 0.4 Mg/1 Ml Vial/Carp) 0.1 mg IV Q5M PRN PRN Reason: Oversedation/Resp depression Stop: 05/28/22 10:41 Ondansetron HCl (Ondansetron Inj 2 Mg/Ml 2 Ml Vial) 4 mg IV Q6H PRN PRN Reason: Nausea &/or Vomiting Stop: 05/28/22 10:41 Ondansetron HCl (Ondansetron 4 Mg Od Tab) 4 mg PO Q6H PRN PRN Reason: Nausea Stop: 05/28/22 10:41 Oxycodone HCl (Oxycodone Hcl Ir 5 Mg Tab (Immediate Release)) 5 - 10 mg PO Q4H PRN PRN Reason: Pain & Pre PT Stop: 05/12/22 10:41 Last Admin: 04/30/22 09:43 Dose: 5 mg Pneumococcal Polyvalent Vaccine (Do Not Administer Pneumococcal Vaccine) 1 each N/A PRN PRN PRN Reason: Notification Stop: 05/28/22 10:41 Polyethylene Glycol (Polyethylene (Miralax) 17 Gm Pack) 17 gm PO Q6 [facility] Stop: 05/29/22 05:59 Last Admin: 04/30/22 05:46 Dose: 17 gm Senna/Docusate Sodium (Docusate Sodium/Senna 50/8.6mg Tab) 2 tab PO HS [facility] Stop: 05/28/22 20:59 Last Admin: 04/29/22 20:25 Dose: 2 tab Sodium Biphosphate/Sodium Phosphate (Sod Phosphate/Sod Biphosphate Enema 132 Ml Btl) 132 ml TX ONE PRN PRN Reason: Constipation Stop: 05/28/22 10:41 Tramadol HCl (Tramadol Hcl 50 Mg Tablet) 50 - 100 mg PO Q4H PRN PRN Reason: Moderate-Severe pain & Pre PT Stop: 05/28/22 10:41
[2022-04-30 12:10] LABS: Estimated Average Glucose 134 mg/dl; Hemoglobin A1C 6.3 % (4.5-5.6)
[2022-04-30] MEDS: DOCUSATE SODIUM/SENNA 50/8.6MG TAB PO SCH (21:35)
[2022-05-01] MEDS: oxyCODONE HCL IR 5 MG TAB (IMMEDIATE RELEASE) PO PRN (06:00)
[2022-05-01] MEDS: POLYETHYLENE (MIRALAX) 17 GM PACK PO SCH (06:00)
[2022-05-01] MEDS: FAMOTIDINE 20 MG TAB PO SCH (07:48)
[2022-05-01] MEDS: ASCORBIC ACID 500 MG TAB PO SCH (07:48)
[2022-05-01] MEDS: ATORVASTATIN 40 MG TAB PO SCH (07:48)
[2022-05-01] MEDS: CALCIUM CARBONATE 1250MG TAB PO SCH (07:48)
[2022-05-01] MEDS: dexAMETHasone 6 MG in SYRINGE 0 ML IV SCH (07:49)
[2022-05-01] MEDS: CYANOCOBALAMIN (B-12) 100 MCG TABLET PO SCH (07:49)
[2022-05-01] MEDS: MULTIVITAMIN TAB PO SCH (07:49)
[2022-05-01 07:58] LABS: Hematocrit (blood only) 33.2 % (37.0-47.0); Hemoglobin 11.1 g/dl (12.0-16.0); Mean Corpuscular Hemoglobin 31.3 pg (25.0-34.0); Mean Corpuscular Hgb Conc 33.4 g/dL (32.0-36.0); Mean Corpuscular Volume 93.5 fL (80.0-100.0); Mean Platelet Volume 9.9 fL (9.4-12.4); Platelet Count 285 K/uL (130-400); RDW Standard Deviation 41.5 fL (36.4-46.3); Red Blood Count 3.55 M/uL (4.20-5.40); White Blood Count 13.27 K/ul (4.8-10.8)
[2022-05-01 08:10] LABS: BUN Creatinine Ratio 28.8 (10-20); Calcium 8.8 mg/dl (8.6-10.3); Creatinine Clr Calc Pharmacy 94.3 ml/min; Est GFR (Non-African American) 97.5 ml/min; Potassium 3.8 mmol/L (3.5-5.1)
--- NOTE | 2022-05-01 08:22 | Discharge Summary ---
Date of Service May 01, 2022 Admission HPI Per Admitting Provider This is a 67-year-old female who presents with chronic persistent back and leg pain after failing course of nonoperative care she is here for surgical invention. Principal Diagnosis Lumbar spinal stenosis with neurogenic claudication Discharge Data Allergies Allergy/AdvReac Type Severity Reaction Status Date / Time ampicillin Allergy Intermediate hives or Verified 04/28/22 06:39 flu like symptoms sulfamethoxazole Allergy Intermediate hives or Verified 04/28/22 06:39 [From Septra] flu like symptoms trimethoprim [From Septra] Allergy Intermediate hives or Verified 04/28/22 06:39 flu like symptoms acetaminophen Allergy Unknown Verified 04/28/22 06:39 [From Lorcet (hydrocodone)] hydrocodone Allergy Unknown Verified 04/28/22 06:39 Consultations 04/28/22 10:42 Consult Hospitalist Routine Procedures Performed Operation Date: 04/28/22 07:45 Actual Procedures p L3-L5 Decompression and Fusion, Spinal Cord Monitoring(Not Applicable) - Ruy Draper DO Ordered Studies 04/28/22 07:45 FL lumbar spine 2-3V Routine Hospital Course (1) Neurogenic claudication due to lumbar spinal stenosis: Patient with lumbar decompression and fusion tolerated this well was taken to orthopedic floor postoperatively postop day 1 she was up and needing placement of tissue progressively postop day #3 pain controlled leg pain improved socially discharged home. Discharge orders instructions found in chart for review. Total Time Total Time Spent Total Time Spent (In Minutes): 20 minutes Discharge Plan Discharge Items Patient Disposition: Home - Self-Care Reason For Visit: Spinal Stenosis, Lumbar REgion with Neurogenic Cla Discharge Diagnosis: Lumbar spinal stenosis with neurogenic claudication Activity: As commented below Non-emergency contact: Primary Care Provider Call non-emergency contact if: you have any medication questions Follow-up/Referrals: Cristobal Steinberg DO [Primary Care Provider] - Diet: Regular Addtl Attending Provider Instructions: ACTIVITY RECOMMENDATIONS: SELF CARE INSTRUCTIONS AFTER THORACIC/LUMBAR FUSIONS 1. You may walk to your tolerance. It is good exercise for your legs and back. Expect some back and intermittent leg aches and pains. 2. You may perform "counter-top" level activities (make a sandwich, karishma with a project, etc.). 3. No bending or lifting of more than 10 pounds or back twisting of any nature (roll like a log when turning in bed). 4. You may ride in a car for 20-30 minutes at a time. No driving until after your first visit with your doctor. 5. Frequent changes of position and restricting sitting to 30 minutes at a time will help limit the amount of back spasms and stiffness you may experience. 6. You may discontinue the use of ambulatory aids (cane, crutches, etc.) once your strength and confidence allow. 7. You may trim machine operator the shower and let water strike your incision when you arrive home at least once daily. Do not take a tub bath, sit in a hot tub or go into a swimming pool until after your first recheck in the office. SPECIAL CARE INSTRUCTIONS: VERY IMPORTANT TO READ AND REVIEW A. Your surgical incision has been closed with a cosmetic suture under the skin that will dissolve in about 6 weeks. In 14 days, you can use a pair of clean scissors and cut the suture that is left outside of the skin at the ends of your incision. 1. The small skin tapes can be removed 7 days after surgery if they have not fallen off by that point. 2. You may keep the wound open to air as much as possible to promote healing after post-op day number 5 unless told otherwise by your doctor. 3. If you think the wound looks like it is becoming infected (redness or worsening drainage) and/or you are experiencing fever, chill or worsening back pain and muscle spasms, contact the office so that we may evaluate you as soon as possible. B. Complications are uncommon, but please contact us if you have any signs or symptoms of: 1. wound infection (fever higher than 102.5 degrees F, redness, separation of wound, drainage, or increasing pain from the incision) 2. blood clots in legs (pain, swelling, redness and warmth in legs) 3. urinary tract infection (fever higher than 102.5 degrees F, burning upon urination or increased frequency of urination) 4. nerve problems (inability to walk on your toes or heels, numbness, loss of bowel or bladder control) 5. any other symptoms that concern you C. Please call the office at if you have any concerns or questions about your operation or recovery. D. No smoking! Smoking drastically decreases the chance of a solid fusion. E. Do not take any anti-inflammatory medications (Indocin, Advil, Motrin, Aspirin, Naprosyn, etc.) as these may inhibit the chance of a solid fusion. Tylenol is okay to take for pain. MANAGING PAIN AFTER SPINAL SURGERY 1. Narcotic medication is intended for short-term use and will be provided for surgical pain. Surgical pain usually lasts for a period of 4-6 weeks. Narcotic medication includes Percocet, Vicodin, Darvocet, Tylenol #3 or Lortab. 2. Longer-term pain is more appropriately treated with non-narcotic medication such as Tylenol ES. 3. Muscle spasm is not appropriately treated with narcotics. Muscle relaxers such as Soma, Flexeril or Skelaxin can be used along with Tylenol ES. 4. Remember that we all live with some "aches and pains". This is not unusual or uncommon after an injury or as we get older. a. Back pain is expected and may include muscle spasms for 4 to 6 weeks after surgery. The pain should gradually improve. If the pain worsens for no apparent reason, please contact the office. b. Intermittent leg pain may also be experienced and should not be concerned about unless it worsens for no apparent reason. If so, please contact the office. 5. We will provide appropriate medication within the normal guidelines of their prescribed use. We will also be very cautious and aware of potential abuse and extended duration of patients' medication needs. a. Pain medications are for your comfort and to assist with sleep and rest so that the tissue can heal. They are not provided in order to return to normal activity and should not be used through the day. To do so or worsening pain at night can result from ongoing tissue damage and development of tolerance to the prescribed medicine. 6. Please allow 2-3 days to process refills. Prescriptions will not be mailed but must be picked up at the office. FOLLOW UP VISIT: Keep your scheduled follow-up appointment. Any questions, please call the office at . Addtl Accounting Specialist Provider Instructions: Your A1C was 6.3. This is consistent with Pre diabetes. Recommend follow up with your PCP for repeat A1C in 6 months. Recommend diet and lifestyle changes to prevent diabetes. Pending Studies at Discharge: No Stand-Alone Forms: My [employer], Smoking Cessation Medications and CO Order Prescriptions: New tramadol 50 mg tablet 50 mg PO Q6H PRN (Reason: pain, moderate) Qty: 30 0RF oxycodone 5 mg tablet 5 mg PO Q6H PRN (Reason: pain, severe) Qty: 30 0RF Continued multivitamin Tablet 1 tab PO QAM atorvastatin 40 mg Tablet 40 mg PO QAM cyanocobalamin (vitamin B-12) [Vitamin B-12] 100 mcg Tablet 100 mcg PO QAM calcium carbonate [Calcium 600] 600 mg calcium (1,500 mg) Tablet 600 mg PO QAM famotidine 20 mg Tablet 20 mg PO QAM ascorbic acid (vitamin C) [Vitamin C] 500 mg Tablet 500 mg PO QAM psyllium husk [Daily Fiber] 0.52 gram Capsule 0.52 g PO QAM Excedrin Migraine 250-250-65 mg Tablet 1 tab PO Q6H PRN (Reason: Migraine Headache) Discharge Orders: Discharge Order (Routine); Ordered 05/01/22 Ordered By: Ruy Mccarthy/Other Patient Handouts: Prediabetes, 5 Steps for Eating Healthier Admission Data Admit Date/Time: 04/28/22 09:29 Attending Provider: Ruy Draper Admit Provider: Ruy Draper Primary Care Provider: Cristobal Steinberg Other Providers: Gloria Antonio ; Henry De Los Santos ; Vanda Cuellar
--- NOTE | 2022-05-01 10:58 | Hospitalist Progress Note ---
Date of Service May 01, 2022 Assessment & Plan (1) Status post spinal surgery: Plan: This is a 67-year-old female with PMH of hyperlipidemia, GERD, migraine headaches, B12 deficiency, hypertension and other medical problems listed below who is postop #2 s/p lumbar decompression and fusion L2-L5 by Dr. Draper. POD#3 s/p lumbar decompression and fusion L2-L5 by Dr. Draper Per ortho for pain control, wound care, anticoagulation and activities Monitor H&H (EBL 100ml, pre-op hgb 14.6), hemoglobin 11.1 today (12.3 yesterday) Continue incentive spirometry, PT/OT when appropriate Leukocytosis -> improving Likely reactive in setting of steroid use No signs or symptoms of infection Monitor Elevated fasting glucose bsg 103 this a.m a1c 6.3 discussed with pt regarding pre diabetes, recommend repeat a1c in 6 months diet and lifestyle mod advised (2) Dyslipidemia: Plan: Continue statin (3) Hypertension: Plan: Not on antihypertensives due to labile nature. Current BP 108/66, continue to monitor (4) GERD (gastroesophageal reflux disease): Plan: Continue H2 don (5) Migraine: Plan: Uses Excedrin as needed at home (6) Vitamin B12 deficiency: Plan: Continue supplementation DVT Ppx: SCDs per ortho service PCP: Dr. Carpenter of [facility] in [place], [place] Dispo: Per primary service Patient seen in collaboration with Dr. De Los Santos. Please see addendum. A total of 30 minutes were spent with greater than 50% of that time face to face with the patient, personally reviewing all current laboratories, imaging studies, past medication reconciliation, outpatient chart review, and discussion with specialists to collaborate care for the patient with attending. Please see attending documentation for corrections and/or additions. Admission and Anticipated Discharge Date Admission Date: April 28, 2022 Supervising Physician Co-Signing Physician Notes Patient is seen and examined at bedside. I personally reviewed the chart today. Discussed plan of care with physician salon assistant. Patient is being planned to be discharged home today. Patient is being managed for lumbar spinal stenosis with neurogenic claudication S/P lumbar surgery by Dr. Draper. Pain control, wound care, DVT prophylaxis as per primary team. Monitor for leukocytosis. Prediabetes with HbA1c 6.3, needs counseling. Continue medications for hypertension, hyperlipidemia, GERD. I personally reviewed the record. Patient is interviewed and examined at bedside. Patient's care is coordinated with Vanda Cuellar PA-C. Please refer to the documentation above for details of patient's presentation and for discussion of other issues. Subjective Seen and examined in 305. No new events overnight and feeling well. Some surgical site discomfort but otherwise improved. Plan for discharge home today. Passing flatus but no bowel movement yet. No fever, chills, lightheadedness, CP, SOB, N/V, abdominal pain, dysuria or diarrhea. Review of Systems Review of Systems: At least ten systems reviewed and negative except as noted in the HPI. Physical Exam Physical Exam: Gen: WD/WN, NAD, sitting in bedside chair, A&Ox3 HEENT: Normocephalic, atraumatic, conjunctivae moist, sclerae anicteric, mucous membranes moist Lung: Clear to Auscultation bilaterally, no wheezes/rales/rhonchi Heart: Regular rate, regular rhythm, no murmurs, rubs, or gallops Abdomen: Soft, NT, ND +BS x 4 Extremities: +Spinal dressing c/d/i. Drain removed. No edema Skin: Warm, no rash Results & Data Results & Data Vital Signs (Past 12 Hours) Vital Signs Temp Pulse Resp BP BP Pulse Ox O2 Del Method 05/01/22 10:25 36.7 C 66 16 102/60 103/64 94 05/01/22 07:40 36.7 C 66 16 102/60 94 Room Air Laboratory Results Short CBC 05/01/22 Range/Units 07:30 WBC 13.27 H (4.8-10.8) K/ul Hgb 11.1 L (12.0-16.0) g/dl Hct 33.2 L (37.0-47.0) % Plt Count 285 (130-400) K/uL BMP 05/01/22 07:30 Sodium 138 Potassium 3.8 Chloride 105 Carbon Dioxide 26 BUN 15 Creatinine 0.52 L Glucose 87 Calcium 8.8 Diagnostic Findings Lumbar Spine X-Ray 04/28/22 07:45 INTRAOPERATIVE RADIOGRAPHS CLINICAL HISTORY: L3-L5 spinal fusion. Fluoro time: 18 seconds. Exposure: 12.24 mGy FINDINGS: 2 spot fluoroscopic views of the lumbar spine are presented. There has been laminectomy and posterior fusion at L3-L5. Interpedicular screws are presen t at all levels. The orthopedic hardware appears intact. IMPRESSION: Intraoperative images from lumbar spinal fusion surgery as above. Electronically signed by: Mauro Ingram M.D. 04/28/2022 9:23 AM
== END 2022-05-01 11:21 | disposition home or self-care (01) | DRG 460 ==
LOC: ASU 06:04 → 3E 09:29